=== PATIENT | female | born 1945 | race Caucasian/White ===

== ENCOUNTER 2022-01-30 10:43 | Inpatient (IN) | payer MEDICARE ==
[2022-01-30] MEDS ORDERED: Ondansetron PF 4 MG/2 ML Vial ONE (11:39)
[2022-01-30] MEDS ORDERED: Morphine 4 MG/ML VIAL ONE ×2 (11:39→16:00)
[2022-01-30 11:54] LABS: #Basophils 0.1 thou/uL (0.0-0.2); #Eosinphils 0.1 thou/uL (0.0-0.7); #Lymphocytes 1.2 thou/uL (1.20-3.40); #Monocytes 0.9 thou/uL (0.11-0.59); #Neutrophils 10.5 thou/uL (1.40-6.50); %Basophils 0.5 % (0.0-1.0); %Eosinophils 0.8 % (0.0-10.0); %Lymphocytes 9.7 % (21.0-51.0); %Monocytes 6.7 % (0.0-10.0); %Neutrophils 82.4 % (42.0-75.0); Hemoglobin 12.4 g/dL (12.0-16.0); Mean Corpuscular HGB CONC 31.9 g/dL (32.0-36.0); Mean Corpuscular Hemoglobin 27.2 pg (27.0-31.0); Mean Corpuscular Volume 85.1 fL (78.0-98.0); Platelet Count 280 thou/uL (130-400); RBC Distribution Width 14.7 % (11.5-14.5); Red Blood Cell (RBC) Count 4.54 mill/uL (4.20-5.40); White Blood Cell (WBC) Count 12.7 thou/uL (4.8-10.8)
[2022-01-30 12:14] LABS: ALT (SGPT) 13 U/L (8-55); AST (SGOT) 11 U/L (5-34); Albumin 3.5 g/dL (3.4-4.8); Alkaline Phosphatase 103 U/L (40-110); Anion Gap 19 mmol/L (10-20); BUN (Urea Nitrogen) 19 mg/dL (9.8-20.1); Bilirubin, Total 0.5 mg/dL (0.2-1.2); CK (CPK) 30 U/L (29-168); Calc. Creatinine Clearance 0 mL/min (70-130); Calcium 9.1 mg/dL (7.8-10.44); Carbon Dioxide 21 mmol/L (23-31); Chloride 101 mmol/L (98-107); Estimated GFR 32; Glucose 172 mg/dL (83-110); Lipase 6 U/L (8-78); Potassium 4.3 mmol/L (3.5-5.1); Protein, Total 6.5 g/dL (5.8-8.1); Sodium 137 mmol/L (136-145)
[2022-01-30 12:34] LABS: CKMB 1.1 ng/mL (0-6.6)
[2022-01-30 14:55] LABS: Bilirubin Negative (Negative); Blood, Urine Negative (Negative); Clarity Clear (Clear); Glucose, Urine (Dipstick) Normal (Negative); Ketone, Urine Negative (Negative); Leukocyte Negative Leu/uL (Negative); Nitrite Negative (Negative); Protein, Urine (Dipstick) 10 mg/dL (Neg-Trace); Specific Gravity, Urine 1.022 (1.002-1.036); Urobilinogen Normal mg/dL (Less than 2)
[2022-01-30] MEDS ORDERED: Acetaminophen 325 MG TAB PO PRN (16:20)
[2022-01-30] MEDS ORDERED: Sodium Chloride 0.9% 1,000 ML IV SCH (16:30)
[2022-01-30] MEDS ORDERED: HumaLOG 300 UNITS/3 ML VIAL SC PRN ×2 (17:31)
[2022-01-30] MEDS ORDERED: Dextrose 50% Abboject 50 ML SYRINGE SLOW IVP PRN (17:31)
[2022-01-30] MEDS ORDERED: Dextrose 5% in Water 1,000 ML IV PRN (17:31)
[2022-01-30 17:37] LABS: Troponin I 0.071 ng/mL (< 0.028)
[2022-01-30 18:13] LABS: SARS-CoV-2 NAA Rapid Test Not Detected (NotDetected)
[2022-01-30] MEDS: Nicotine 14 MG PATCH TD SCH (18:39)
[2022-01-30] MEDS: Sodium Chloride 0.9% 1,000 ML IV SCH (18:40)
[2022-01-30] MEDS: HYDROcodone/Acetaminophen 5/325 mg Tablet PO PRN (19:22)
[2022-01-30 19:39] LABS: Troponin I 0.066 ng/mL (< 0.028)
[2022-01-31] MEDS: Morphine 2 MG/ML VIAL SLOW IVP PRN ×2 (01:43→06:19)
[2022-01-31 03:57] LABS: #Eosinphils 0.2 thou/uL (0.0-0.7); #Lymphocytes 1.4 thou/uL (1.20-3.40); #Neutrophils 9.1 thou/uL (1.40-6.50); %Basophils 0.2 % (0.0-1.0); %Eosinophils 1.3 % (0.0-10.0); %Lymphocytes 12.3 % (21.0-51.0); %Monocytes 8.7 % (0.0-10.0); %Neutrophils 77.6 % (42.0-75.0); Hemoglobin 11.6 g/dL (12.0-16.0); Mean Corpuscular Hemoglobin 27.8 pg (27.0-31.0); Mean Corpuscular Volume 84.4 fL (78.0-98.0); Platelet Count 236 thou/uL (130-400); RBC Distribution Width 14.5 % (11.5-14.5); Red Blood Cell (RBC) Count 4.15 mill/uL (4.20-5.40); White Blood Cell (WBC) Count 11.7 thou/uL (4.8-10.8)
[2022-01-31 04:17] LABS: Anion Gap 18 mmol/L (10-20); BUN (Urea Nitrogen) 13 mg/dL (9.8-20.1); Calc. Creatinine Clearance 44 mL/min (70-130); Calcium 8.5 mg/dL (7.8-10.44); Carbon Dioxide 19 mmol/L (23-31); Chloride 103 mmol/L (98-107); Estimated GFR 45; Glucose 109 mg/dL (83-110); Potassium 3.7 mmol/L (3.5-5.1); Sodium 136 mmol/L (136-145)
[2022-01-31] MEDS: Sodium Chloride 0.9% 1,000 ML IV SCH ×2 (05:15→20:06)
[2022-01-31] MEDS: HYDROcodone/Acetaminophen 5/325 mg Tablet PO PRN ×3 (10:24→20:06)
[2022-01-31] MEDS: Nicotine 14 MG PATCH TD SCH (11:41)
[2022-01-31] MEDS: predniSONE 5 MG TAB PO SCH (20:08)
[2022-01-31] MEDS: Hydroxychloroquine Sulfate 200 MG TAB PO SCH (20:21)
[2022-02-01] MEDS: HYDROcodone/Acetaminophen 5/325 mg Tablet PO PRN ×3 (05:03→23:01)
[2022-02-01 06:21] LABS: #Eosinphils 0.2 thou/uL (0.0-0.7); #Lymphocytes 1.4 thou/uL (1.20-3.40); #Monocytes 0.9 thou/uL (0.11-0.59); #Neutrophils 9.5 thou/uL (1.40-6.50); %Basophils 0.4 % (0.0-1.0); %Eosinophils 1.3 % (0.0-10.0); %Lymphocytes 11.5 % (21.0-51.0); %Monocytes 7.3 % (0.0-10.0); %Neutrophils 79.5 % (42.0-75.0); Mean Corpuscular HGB CONC 31.6 g/dL (32.0-36.0); Mean Corpuscular Hemoglobin 26.7 pg (27.0-31.0); Mean Corpuscular Volume 84.6 fL (78.0-98.0); Mean Platelet Volume 8.1 fL (7.4-10.4); Platelet Count 268 thou/uL (130-400); RBC Distribution Width 14.5 % (11.5-14.5); Red Blood Cell (RBC) Count 4.11 mill/uL (4.20-5.40); White Blood Cell (WBC) Count 11.9 thou/uL (4.8-10.8)
[2022-02-01 06:48] LABS: ALT (SGPT) 8 U/L (8-55); AST (SGOT) 10 U/L (5-34); Albumin 2.9 g/dL (3.4-4.8); Alkaline Phosphatase 86 U/L (40-110); Anion Gap 15 mmol/L (10-20); BUN (Urea Nitrogen) 13 mg/dL (9.8-20.1); Bilirubin, Total 0.3 mg/dL (0.2-1.2); Calc. Creatinine Clearance 46 mL/min (70-130); Calcium 8.5 mg/dL (7.8-10.44); Carbon Dioxide 21 mmol/L (23-31); Chloride 104 mmol/L (98-107); Estimated GFR 46; Globulin 3.1 g/dL (2.4-3.5); Glucose 116 mg/dL (83-110); Potassium 3.7 mmol/L (3.5-5.1); Sodium 136 mmol/L (136-145)
[2022-02-01 07:38] LABS: PTT 42.3 sec (22.9-36.1); Prothrombin Time 13.7 sec (12.0-14.7)
[2022-02-01] MEDS ORDERED: Sodium Bicarbonate 2.5 MEQ/5 ML VIAL ONE (07:49)
[2022-02-01] MEDS: predniSONE 5 MG TAB PO SCH ×2 (09:58→20:40)
[2022-02-01] MEDS: Hydroxychloroquine Sulfate 200 MG TAB PO SCH ×2 (10:02→20:41)
[2022-02-01] MEDS: Oxybutynin ER 5 MG TAB PO SCH (10:02)
[2022-02-01] MEDS: Insulin Glargine 30 UNITS/0.3 ML VIAL SC SCH (10:05)
[2022-02-01] MEDS: Sodium Chloride 0.9% 1,000 ML IV SCH ×2 (10:07→23:02)
[2022-02-01] MEDS: Morphine 2 MG/ML VIAL SLOW IVP PRN ×2 (12:55→18:32)
[2022-02-01] MEDS: Nicotine 14 MG PATCH TD SCH (15:39)
[2022-02-01] MEDS: Mometasone 100 MCG/Formoterol 5 MCG 120 PUFF INHALER INH SCH (18:53)
[2022-02-02] MEDS: HYDROcodone/Acetaminophen 5/325 mg Tablet PO PRN ×3 (06:12→19:53)
[2022-02-02 06:30] LABS: #Eosinphils 0.1 thou/uL (0.0-0.7); #Lymphocytes 1.2 thou/uL (1.20-3.40); #Monocytes 0.8 thou/uL (0.11-0.59); #Neutrophils 7.8 thou/uL (1.40-6.50); %Basophils 0.4 % (0.0-1.0); %Eosinophils 0.8 % (0.0-10.0); %Lymphocytes 12.2 % (21.0-51.0); %Monocytes 7.8 % (0.0-10.0); %Neutrophils 78.7 % (42.0-75.0); Mean Corpuscular Hemoglobin 27.2 pg (27.0-31.0); Mean Corpuscular Volume 84.9 fL (78.0-98.0); Mean Platelet Volume 7.7 fL (7.4-10.4); Platelet Count 259 thou/uL (130-400); RBC Distribution Width 14.5 % (11.5-14.5); Red Blood Cell (RBC) Count 4.06 mill/uL (4.20-5.40)
[2022-02-02 06:52] LABS: Anion Gap 14 mmol/L (10-20); BUN (Urea Nitrogen) 12 mg/dL (9.8-20.1); Calc. Creatinine Clearance 48 mL/min (70-130); Calcium 8.7 mg/dL (7.8-10.44); Carbon Dioxide 23 mmol/L (23-31); Chloride 105 mmol/L (98-107); Estimated GFR 48; Glucose 104 mg/dL (83-110); Potassium 3.7 mmol/L (3.5-5.1); Sodium 138 mmol/L (136-145)
[2022-02-02] MEDS: Mometasone 100 MCG/Formoterol 5 MCG 120 PUFF INHALER INH SCH ×2 (07:42→19:02)
[2022-02-02] MEDS: Oxybutynin ER 5 MG TAB PO SCH (08:04)
[2022-02-02] MEDS: Insulin Glargine 30 UNITS/0.3 ML VIAL SC SCH (08:04)
[2022-02-02] MEDS: predniSONE 5 MG TAB PO SCH ×2 (08:04→19:54)
[2022-02-02] MEDS: Hydroxychloroquine Sulfate 200 MG TAB PO SCH ×2 (08:05→19:54)
[2022-02-02 11:18] VITALS: BMI 23.8
[2022-02-02] MEDS: Sodium Chloride 0.9% 1,000 ML IV SCH ×2 (12:22→19:56)
[2022-02-02] MEDS ORDERED: Magnevist 469MG/ML 20 ML VIAL ONE (16:10)
[2022-02-02] MEDS: Nicotine 14 MG PATCH TD SCH (16:49)
[2022-02-03] MEDS: HYDROcodone/Acetaminophen 5/325 mg Tablet PO PRN ×4 (03:00→18:59)
[2022-02-03 06:23] LABS: #Eosinphils 0.1 thou/uL (0.0-0.7); #Lymphocytes 1.3 thou/uL (1.20-3.40); #Neutrophils 9.7 thou/uL (1.40-6.50); %Basophils 0.3 % (0.0-1.0); %Eosinophils 0.5 % (0.0-10.0); %Lymphocytes 10.7 % (21.0-51.0); %Monocytes 8.3 % (0.0-10.0); %Neutrophils 80.1 % (42.0-75.0); Hemoglobin 10.7 g/dL (12.0-16.0); Mean Corpuscular HGB CONC 31.7 g/dL (32.0-36.0); Mean Corpuscular Hemoglobin 26.9 pg (27.0-31.0); Mean Corpuscular Volume 84.8 fL (78.0-98.0); Platelet Count 268 thou/uL (130-400); RBC Distribution Width 14.4 % (11.5-14.5); White Blood Cell (WBC) Count 12.1 thou/uL (4.8-10.8)
[2022-02-03 06:37] LABS: Anion Gap 14 mmol/L (10-20); BUN (Urea Nitrogen) 9 mg/dL (9.8-20.1); Calc. Creatinine Clearance 57 mL/min (70-130); Calcium 8.9 mg/dL (7.8-10.44); Carbon Dioxide 22 mmol/L (23-31); Chloride 104 mmol/L (98-107); Estimated GFR 57; Glucose 60 mg/dL (83-110); Potassium 3.4 mmol/L (3.5-5.1); Sodium 137 mmol/L (136-145)
[2022-02-03] MEDS: Mometasone 100 MCG/Formoterol 5 MCG 120 PUFF INHALER INH SCH ×2 (06:55→19:15)
[2022-02-03] MEDS: Insulin Glargine 30 UNITS/0.3 ML VIAL SC SCH (08:15)
[2022-02-03] MEDS: predniSONE 5 MG TAB PO SCH ×2 (08:15→21:26)
[2022-02-03] MEDS: Hydroxychloroquine Sulfate 200 MG TAB PO SCH ×2 (08:15→21:26)
[2022-02-03] MEDS: Oxybutynin ER 5 MG TAB PO SCH (08:15)
[2022-02-03] MEDS ORDERED: Potassium Chloride 20 MEQ TAB PO SCH (11:45)
[2022-02-03] MEDS: Nicotine 14 MG PATCH TD SCH (16:43)
[2022-02-03] MEDS: Apixaban 2.5 MG TAB PO SCH (21:26)
[2022-02-03] MEDS: Morphine 2 MG/ML VIAL SLOW IVP PRN (21:30)
[2022-02-04] MEDS: HYDROcodone/Acetaminophen 5/325 mg Tablet PO PRN (05:44)
[2022-02-04 06:24] LABS: #Basophils 0.1 thou/uL (0.0-0.2); #Eosinphils 0.1 thou/uL (0.0-0.7); #Lymphocytes 0.9 thou/uL (1.20-3.40); #Monocytes 0.9 thou/uL (0.11-0.59); #Neutrophils 10.1 thou/uL (1.40-6.50); %Basophils 0.4 % (0.0-1.0); %Eosinophils 0.5 % (0.0-10.0); %Lymphocytes 7.5 % (21.0-51.0); %Monocytes 7.3 % (0.0-10.0); %Neutrophils 84.3 % (42.0-75.0); Hemoglobin 11.1 g/dL (12.0-16.0); Mean Corpuscular HGB CONC 31.6 g/dL (32.0-36.0); Mean Corpuscular Hemoglobin 26.6 pg (27.0-31.0); Mean Corpuscular Volume 84.4 fL (78.0-98.0); Mean Platelet Volume 7.4 fL (7.4-10.4); Platelet Count 267 thou/uL (130-400); RBC Distribution Width 14.5 % (11.5-14.5); Red Blood Cell (RBC) Count 4.18 mill/uL (4.20-5.40); White Blood Cell (WBC) Count 11.9 thou/uL (4.8-10.8)
[2022-02-04 06:43] LABS: Anion Gap 14 mmol/L (10-20); BUN (Urea Nitrogen) 10 mg/dL (9.8-20.1); Calc. Creatinine Clearance 55 mL/min (70-130); Calcium 9.1 mg/dL (7.8-10.44); Carbon Dioxide 20 mmol/L (23-31); Chloride 105 mmol/L (98-107); Estimated GFR 56; Glucose 72 mg/dL (83-110); Potassium 4.2 mmol/L (3.5-5.1); Sodium 135 mmol/L (136-145)
[2022-02-04] MEDS: Mometasone 100 MCG/Formoterol 5 MCG 120 PUFF INHALER INH SCH ×2 (07:17→18:58)
[2022-02-04] MEDS: predniSONE 5 MG TAB PO SCH ×2 (08:09→20:55)
[2022-02-04] MEDS: Oxybutynin ER 5 MG TAB PO SCH (08:09)
[2022-02-04] MEDS: Hydroxychloroquine Sulfate 200 MG TAB PO SCH ×2 (08:09→20:54)
[2022-02-04] MEDS: Insulin Glargine 30 UNITS/0.3 ML VIAL SC SCH (08:09)
[2022-02-04] MEDS: Apixaban 2.5 MG TAB PO SCH ×2 (08:09→20:55)
[2022-02-04] MEDS: Morphine 2 MG/ML VIAL SLOW IVP PRN ×2 (10:24→15:44)
[2022-02-04] MEDS: Nicotine 14 MG PATCH TD SCH (15:56)
[2022-02-04] MEDS: Morphine ER 15 MG TAB PO SCH (20:54)
[2022-02-05] MEDS: Mometasone 100 MCG/Formoterol 5 MCG 120 PUFF INHALER INH SCH ×2 (07:10→18:51)
[2022-02-05] MEDS: Oxybutynin ER 5 MG TAB PO SCH (08:25)
[2022-02-05] MEDS: Morphine ER 15 MG TAB PO SCH ×2 (08:25→21:03)
[2022-02-05] MEDS: Apixaban 2.5 MG TAB PO SCH ×2 (08:26→21:04)
[2022-02-05] MEDS: predniSONE 5 MG TAB PO SCH ×2 (08:26→21:04)
[2022-02-05] MEDS: Hydroxychloroquine Sulfate 200 MG TAB PO SCH ×2 (08:27→21:04)
[2022-02-05] MEDS: Insulin Glargine 30 UNITS/0.3 ML VIAL SC SCH (08:27)
[2022-02-05] MEDS ORDERED: Milk Of Magnesia 30 ML UDCUP PO ONE (11:59)
[2022-02-05] MEDS ORDERED: Ondansetron PF 4 MG/2 ML Vial IVP PRN (12:00)
[2022-02-05] MEDS: HYDROcodone/Acetaminophen 5/325 mg Tablet PO PRN (14:27)
[2022-02-05] MEDS: Nicotine 14 MG PATCH TD SCH (14:28)
[2022-02-05] MEDS ORDERED: Bisacodyl 10 MG SUPP PR SCH (19:30)
[2022-02-06] MEDS: HYDROcodone/Acetaminophen 5/325 mg Tablet PO PRN (02:34)
[2022-02-06 06:25] LABS: Anion Gap 15 mmol/L (10-20); BUN (Urea Nitrogen) 16 mg/dL (9.8-20.1); Calc. Creatinine Clearance 40 mL/min (70-130); Calcium 9.3 mg/dL (7.8-10.44); Carbon Dioxide 23 mmol/L (23-31); Chloride 99 mmol/L (98-107); Estimated GFR 38; Glucose 136 mg/dL (83-110); Magnesium 1.9 mg/dL (1.6-2.6); Potassium 4.1 mmol/L (3.5-5.1); Sodium 133 mmol/L (136-145)
[2022-02-06] MEDS: Mometasone 100 MCG/Formoterol 5 MCG 120 PUFF INHALER INH SCH (07:35)
[2022-02-06] MEDS: Hydroxychloroquine Sulfate 200 MG TAB PO SCH (07:48)
[2022-02-06] MEDS: Morphine ER 15 MG TAB PO SCH (07:48)
[2022-02-06] MEDS: predniSONE 5 MG TAB PO SCH (07:49)
[2022-02-06] MEDS: Insulin Glargine 30 UNITS/0.3 ML VIAL SC SCH (07:49)
[2022-02-06] MEDS: Apixaban 2.5 MG TAB PO SCH (07:49)
[2022-02-06 07:52] VITALS: BP 123/66; TEMP 98.4
[2022-02-06] MEDS: Oxybutynin ER 5 MG TAB PO SCH (07:53)
[2022-02-06] MEDS ORDERED: Senokot S 8.6-50 MG TAB PO SCH (09:00)
[2022-02-06] MEDS ORDERED: Docusate 100 MG CAP PO SCH (09:00)
== END 2022-02-06 12:06 | disposition home or self-care (01) | DRG 180 ==
LOC: ERS 10:43 → ERHOLD 16:03 → IMCU/EMU 17:52 → T4-A 01-31 18:41
PROVIDERS: ADMIT Internal Medicine; ATTEND Hospitalist
PROC: 0FB23ZX Excision of Left Lobe Liver, Percutaneous Approach, Diagnostic (ICD-10-PCS; principal; 2022-02-01)
DX: C34.92 Malignant neoplasm of unspecified part of left bronchus or lung (principal); J18.9 Pneumonia, unspecified organism; C78.7 Secondary malignant neoplasm of liver and intrahepatic bile duct; C78.6 Secondary malignant neoplasm of retroperitoneum and peritoneum; N17.9 Acute kidney failure, unspecified; E44.0 Moderate protein-calorie malnutrition; E78.00 Pure hypercholesterolemia, unspecified; F17.210 Nicotine dependence, cigarettes, uncomplicated; N18.32 Chronic kidney disease, stage 3b; E11.22 Type 2 diabetes mellitus with diabetic chronic kidney disease; I12.9 Hypertensive chronic kidney disease with stage 1 through stage 4 chronic kidney disease, or unspecified chronic kidney disease; D73.5 Infarction of spleen; R63.0 Anorexia; R77.8 Other specified abnormalities of plasma proteins; E11.649 Type 2 diabetes mellitus with hypoglycemia without coma; R07.81 Pleurodynia; R10.12 Left upper quadrant pain; R07.89 Other chest pain; Z79.4 Long term (current) use of insulin; Z90.710 Acquired absence of both cervix and uterus; Z68.24 Body mass index [BMI] 24.0-24.9, adult; Z79.899 Other long term (current) drug therapy; Z98.890 Other specified postprocedural states; Z79.01 Long term (current) use of anticoagulants; Z98.51 Tubal ligation status; Z20.822 Contact with and (suspected) exposure to COVID-19
CPT/HCPCS: 36415; 36416; 47000; 70553; 71260; 74018; 74177; 77002; 80048; 80053; 81003; 82550; 82553; 83605; 83690; 83735; 84484; 85025; 85610; 85730; 87811; 88307; 88333; 88341; 88342; 93005; 94664; 96361; 96374; 96375; 96376; A9579; J1815; J2270; J2405; J7050; J7512

== ENCOUNTER 2022-03-02 10:15 | Outpatient (CLI) | payer MEDICARE | END 2022-03-02 10:16 | disposition home or self-care (01) | LOC: PET 10:15 | PROVIDERS: ATTEND Internal Medicine Hematology & Oncology | DX: C34.31 Malignant neoplasm of lower lobe, right bronchus or lung (principal); C78.7 Secondary malignant neoplasm of liver and intrahepatic bile duct; C77.9 Secondary and unspecified malignant neoplasm of lymph node, unspecified; C78.00 Secondary malignant neoplasm of unspecified lung | CPT/HCPCS: 78815; A9552 ==